=== PATIENT | male | born 1970 ===

== ENCOUNTER → 2016-10-16 19:31 | Outpatient (CLI) | payer BC ==
[2016-10-16 21:50] LABS: CHOL - HDL RATIO 5.3 ratio (2.3-4.9); LDL-HDL RATIO 3.2 ratio (1.5-3.5)
== END | disposition home or self-care (01) ==
LOC: D.LABREF 19:31
PROVIDERS: Internal Medicine Cardiovascular Disease
DX: E78.5 Hyperlipidemia, unspecified (principal)